=== PATIENT | male | born 1980 | race Hispanic/Latino ===

== ENCOUNTER 2024-07-03 04:09 | Observation (INO) | payer BC ==
[~2024-07-03] VITALS: Ht 185.4 cm; Wt 112.0 kg
[2024-07-03] MEDS: ONDANSETRON HCL INJ 2MG/ML 2ML 2 MG/ML VIAL IV STA (04:37)
[2024-07-03] MEDS: SODIUM CHLORIDE 0.9% 1000ML 1,000 ML IV ONE (04:37)
[2024-07-03] MEDS: Morphine 4mg INJECTION 4 MG/ML INJ IV ONE (04:37)
[2024-07-03] MEDS: KETOROLAC TROMETHAMINE 30 MG/ML VIAL IV STA (04:40)
[2024-07-03 04:41] LABS: BASOPHILS # (AUTO) 0.1 (0.0-0.1); BASOPHILS % 0.6 % (0.0-1.0); EOSINOPHILS # (AUTO) 0.6 (0.0-0.4); EOSINOPHILS % 4.1 % (0.0-6.0); HEMATOCRIT 44.4 % (38.2-49.6); HEMOGLOBIN 15.2 g/dL (14.0-18.0); LYMPHOCYTES # (AUTO) 2.6 (1.0-3.2); LYMPHOCYTES % 18.5 % (18.0-39.1); MEAN CORPUSCULAR HEMOGLOBIN 30.6 pg (28-32); MEAN CORPUSCULAR HGB CONC 34.2 g/dL (31-35); MEAN CORPUSCULAR VOLUME 89.5 fL (81-99); MONOCYTES # (AUTO) 1.3 (0.2-0.8); NEUTROPHILS # (AUTO) 9.6 (2.1-6.9); NEUTROPHILS % 67.4 % (38.7-80.0); PLATELET COUNT 252 x10e3/uL (140-360); RED BLOOD COUNT 4.96 x10e6/uL (4.3-5.7); RED CELL DISTRIBUTION WIDTH 12.4 % (11.7-14.4); WHITE BLOOD COUNT 14.29 x10e3/uL (4.8-10.8)
[2024-07-03 05:04] LABS: CLARITY,URINE CLEAR (CLEAR); COLOR,URINE YELLOW (YELLOW)
[2024-07-03 05:05] LABS: BILIRUBIN,URINE SMALL (NEGATIVE); GLUCOSE, URINE NEGATIVE (NEGATIVE); KETONES,URINE 2+ (NEGATIVE); LEUKOCYTE ESTERASE ,URINE NEGATIVE (NEGATIVE); NITRITE,URINE NEGATIVE (NEGATIVE); PH,URINE 6 (5 - 7); PROTEIN,URINE DIPSTICK TRACE (NEGATIVE); URINE UROBILINOGEN 0.2 mg/dL (0.2 - 1)
[2024-07-03 05:13] LABS: ALBUMIN/GLOBULIN RATIO 1.2 (0.8-2.0); ANION GAP 17.8 mmol/L (8-16); BILIRUBIN,TOTAL 1.2 mg/dL (0.2-1.2); CALCIUM 9.2 mg/dL (8.4-10.2); CREATININE, SERUM 1.28 mg/dL (0.72-1.25); POTASSIUM 3.8 mmol/L (3.5-5.1); TOTAL PROTEIN 7.4 g/dL (6.5-8.1)
[2024-07-03 05:27] LABS: BACTERIA,URINE MODERATE /HPF; EPITHELIAL CELLS,URINE FEW /LPF
[2024-07-03] MEDS ORDERED: IOPAMIDOL 370 MG/ML 100 ML INFUS..BTL INJ ONE (05:29)
[2024-07-03] MEDS ORDERED: ONDANSETRON HCL INJ 2MG/ML 2ML 2 MG/ML VIAL IV PRN (06:30)
[2024-07-03] MEDS: SODIUM CHLORIDE 0.9% 1000ML 1,000 ML IV SCH (06:31)
[2024-07-03 06:39] LABS: INR 0.99; PROTHROMBIN TIME 13.7 seconds (11.9-14.5)
[2024-07-03 06:40] LABS: PARTIAL THROMBOPLASTIN TIME 33.8 seconds (23.8-35.5)
[2024-07-03 09:36] VITALS: PULSE 79; RESP 16; TEMP 98.4
[2024-07-03 10:15] VITALS: PULSE 80; RESP 16; TEMP 98.2; O2SAT 100
[2024-07-03] MEDS ORDERED: FENTANYL CITRATE/PF 100MCG/2 ML INJ ONE ×2 (10:54→11:34)
[2024-07-03] MEDS ORDERED: ROCURONIUM BROMIDE 1 ML IV ONE (10:54)
[2024-07-03] MEDS ORDERED: SUCCINYLCHOLINE CHLORIDE 20 MG/ML 10ML VIAL ONE (10:54)
[2024-07-03] MEDS ORDERED: PROPOFOL IV EMULSION 10 MG/ML 20 ML VIAL ONE (10:54)
[2024-07-03 13:30] VITALS: BP 136/88; PULSE 68; RESP 16; TEMP 97.8; O2SAT 98
[2024-07-03] MEDS: Morphine 4mg INJECTION 4 MG/ML INJ IV PRN (14:13)
[2024-07-03] MEDS ORDERED: SEVOFLURANE INHAL SOLN 250 ML PEN BTL ONE (15:02)
[2024-07-03 16:30] VITALS: BP 131/90; PULSE 76; RESP 18; TEMP 97.9; O2SAT 99
[2024-07-03 20:00] VITALS: BP 131/90; PULSE 76; RESP 18; TEMP 97.9; O2SAT 99
[2024-07-03 20:14] VITALS: BP 140/98; PULSE 77; RESP 16; TEMP 98; O2SAT 98
[2024-07-03] MEDS: ACETAMINOPHEN 325 MG TAB PO PRN (21:16)
[2024-07-04 00:07] VITALS: BP 139/95; PULSE 79; RESP 16; TEMP 98.2; O2SAT 99
[2024-07-04 04:10] VITALS: BP 146/99; PULSE 75; RESP 16; TEMP 97.7; O2SAT 99
[2024-07-04 05:09] LABS: BASOPHILS # (AUTO) 0.1 (0.0-0.1); BASOPHILS % 0.5 % (0.0-1.0); EOSINOPHILS # (AUTO) 0.6 (0.0-0.4); EOSINOPHILS % 6.1 % (0.0-6.0); HEMATOCRIT 39.4 % (38.2-49.6); HEMOGLOBIN 13.5 g/dL (14.0-18.0); LYMPHOCYTES % 21.5 % (18.0-39.1); MEAN CORPUSCULAR HEMOGLOBIN 30.8 pg (28-32); MEAN CORPUSCULAR HGB CONC 34.3 g/dL (31-35); MEAN CORPUSCULAR VOLUME 89.7 fL (81-99); MONOCYTES # (AUTO) 0.9 (0.2-0.8); MONOCYTES % 9.5 % (4.4-11.3); NEUTROPHILS # (AUTO) 5.6 (2.1-6.9); PLATELET COUNT 252 x10e3/uL (140-360); RED BLOOD COUNT 4.39 x10e6/uL (4.3-5.7); RED CELL DISTRIBUTION WIDTH 12.4 % (11.7-14.4); WHITE BLOOD COUNT 9.11 x10e3/uL (4.8-10.8)
[2024-07-04 05:44] LABS: ALBUMIN 3.3 g/dL (3.5-5.0); ALBUMIN/GLOBULIN RATIO 1.1 (0.8-2.0); ANION GAP 13.9 mmol/L (8-16); BILIRUBIN,TOTAL 0.7 mg/dL (0.2-1.2); CALCIUM 8.4 mg/dL (8.4-10.2); CREATININE, SERUM 1.2 mg/dL (0.72-1.25); POTASSIUM 3.9 mmol/L (3.5-5.1); TOTAL PROTEIN 6.2 g/dL (6.5-8.1)
[2024-07-04 07:57] VITALS: BP 148/97; PULSE 76; RESP 19; TEMP 98; O2SAT 99
[2024-07-04 10:30] VITALS: BP 148/97; PULSE 76; RESP 19; TEMP 98; O2SAT 99
[2024-07-04 12:00] VITALS: BP 141/89; PULSE 77; RESP 20; TEMP 98.3; O2SAT 98
== END 2024-07-04 13:00 | disposition home or self-care (01) ==
LOC: ER 04:19 → ERHOLD 06:19 → MED/SURG 10:01
PROVIDERS: ADMIT Internal Medicine; ATTEND Internal Medicine
DX: K35.80 Unspecified acute appendicitis (principal); I10 Essential (primary) hypertension; E78.5 Hyperlipidemia, unspecified; E66.01 Morbid (severe) obesity due to excess calories; Z68.32 Body mass index [BMI] 32.0-32.9, adult
CPT/HCPCS: 36415 ×2; 44970; 74177; 80053 ×2; 81001; 82948; 83690; 85025 ×2; 85610; 85730; 88304; 99284; G0378 ×2; J0330; J2270 ×2; J2405; J2543 ×2; J2704; J3010; J7030 ×2; Q9967